=== PATIENT | female | born 1950 | race African-American/Black ===

== ENCOUNTER 2021-03-25 10:41 | Inpatient (IN) | payer MEDICARE ==
[~2021-03-25] VITALS: Ht 162.6 cm; Wt 94.8 kg
[2021-03-25 11:42] LABS: BASOPHILS % 0.5 % (0.0-2.0); EOSINOPHILS % 1.5 % (0.0-5.0); HEMOGLOBIN. 11.6 g/dL (12.0-16.0); LYMPHOCYTES % 8.4 % (20.0-50.0); MEAN CORPUSCULAR HEMOGLOBIN 26.9 pg (28.0-32.0); MEAN CORPUSCULAR VOLUME 83.8 fL (81.0-99.0); MEAN PLATELET VOLUME 9.8 fl (7.4-10.4); MONOCYTES % 6.6 % (2.0-8.0); PLATELET 196 x1000/uL (130-400); RED CELL DISTRIBUTION WIDTH 14.9 % (11.6-14.6)
[2021-03-25 11:45] LABS: CHLORIDE 109 mEq/L (98-107)
[2021-03-25] MEDS ORDERED: LABETALOL 5MG/ML SYR 20 MG/4 ML SYRINGE IV ONE ×3 (11:45→16:30)
[2021-03-25 11:49] LABS: ETHANOL BLOOD < 10 mg/dL
[2021-03-25 11:56] LABS: PROTHROMBIN TIME 10.4 sec (9.6-11.0)
[2021-03-25] MEDS ORDERED: SODIUM CHLORIDE 0.9% 1,000 ML IV ONE (16:45)
[2021-03-25 19:23] LABS: CLARITY URINE CLEAR (CLEAR); COLOR URINE YELLOW (YELLOW); KETONES URINE NEGATIVE (NEGATIVE); LEUKOCYTE ESTERASE URINE TRACE (NEGATIVE); NITRITE URINE NEGATIVE (NEGATIVE); OCCULT BLOOD URINE NEGATIVE (NEGATIVE); PH URINE 5.5 (4.5-8.0); PROTEIN URINE 3+ (NEGATIVE); UROBILINOGEN URINE 0.2 E.U./dL (0.2-1.0)
[2021-03-25 19:40] LABS: *AMPHETAMINES SCREEN URINE NEGATIVE (NEGATIVE); *BARBITURATES SCREEN URINE NEGATIVE (NEGATIVE); *BENZODIAZEPINES SCREEN URINE NEGATIVE (NEGATIVE); *COCAINE SCREEN URINE NEGATIVE (NEGATIVE)
[2021-03-25 19:42] LABS: CANNABINOID URINE SCREEN NEGATIVE (NEGATIVE); METHADONE URINE SCREEN NEGATIVE (NEGATIVE); OPIATES URINE SCREEN PRESUMTIVE POSITIVE (NEGATIVE); PHENCYCLIDINE URINE SCREEN NEGATIVE (NEGATIVE)
[2021-03-26] VITALS (7 sets, daily range): BP systolic 137–234; BP diastolic 61–94
[2021-03-26] MEDS ORDERED: DEXTROSE 50% WATER 50ML SYRINGE IV PRN (01:15)
[2021-03-26] MEDS ORDERED: CLONIDINE 0.1MG TABLET PO PRN (01:15)
[2021-03-26] MEDS ORDERED: AMLODIPINE 5MG TABLET PO SCH (01:30)
[2021-03-26] MEDS: HYDROCODONE/ACETAMINOPHEN 5/325MG TABLET PO PRN ×2 (01:47→14:02)
[2021-03-26] MEDS ORDERED: CLONIDINE 0.2MG TABLET PO NR (04:54)
[2021-03-26] MEDS: PANTOPRAZOLE 40MG DR TABLET PO SCH (05:33)
[2021-03-26] MEDS: BLOOD SUGAR DIAGNOSTIC STRIP TEST SCH ×4 (06:31→20:18)
[2021-03-26] MEDS: INSULIN LISPRO 100 UNITS/ML SUBCUT SCH ×4 (06:32→20:37)
[2021-03-26 07:56] LABS: CHLORIDE 111 mEq/L (98-107)
[2021-03-26] MEDS ORDERED: PNEUMOCOCCAL 23-VAL P-SAC VAC 0.5 ML IM ONE (08:00)
[2021-03-26 08:02] LABS: LDL CHOLESTEROL 53 mg/dL (5-100)
[2021-03-26 08:04] LABS: HDL CHOLESTEROL 65 mg/dL (40-59)
[2021-03-26 08:07] LABS: BASOPHILS % 0.4 % (0.0-2.0); EOSINOPHILS % 0.3 % (0.0-5.0); HEMATOCRIT. 29.7 % (36.0-48.0); HEMOGLOBIN. 9.5 g/dL (12.0-16.0); LYMPHOCYTES % 10.8 % (20.0-50.0); MEAN CORPUSCULAR HEMOGLOBIN 27.2 pg (28.0-32.0); MEAN PLATELET VOLUME 9.9 fl (7.4-10.4); MONOCYTES % 10.1 % (2.0-8.0); NEUTROPHILS % 78.4 % (40.0-76.0); PLATELET 179 x1000/uL (130-400); RED BLOOD CELL COUNT 3.49 mill/uL (4.2-5.4); RED CELL DISTRIBUTION WIDTH 14.9 % (11.6-14.6)
[2021-03-26] MEDS: ASPIRIN 81MG TABLET PO SCH (08:58)
[2021-03-26] MEDS: ENOXAPARIN 30MG/0.3ML SYR SUBCUT SCH (08:59)
[2021-03-26] MEDS ORDERED: INFLUENZA VACCINE 05/PF 0.5 ML SYRINGE IM ONE (10:00)
[2021-03-26] MEDS: AMLODIPINE 10MG TABLET PO SCH (10:01)
[2021-03-26] MEDS ORDERED: INSULIN GLARGINE UD 100 UNITS/ML SYR SUBCUT SCH (14:00)
[2021-03-26] MEDS: ATENOLOL 50 MG TABLET PO SCH (14:03)
[2021-03-26] MEDS: SODIUM CHLORIDE 0.45% 1,000 ML IV SCH (14:03)
[2021-03-26] MEDS ORDERED: HYDRALAZINE HCL 100MG TABLET PO SCH (14:15)
[2021-03-26] MEDS: CLONIDINE 0.2MG TABLET PO PRN (16:57)
[2021-03-26] MEDS ORDERED: NALOXONE HCL 0.4MG/ML VIAL IV PRN (18:00)
[2021-03-26] MEDS: TRAMADOL 50MG TABLET PO PRN (18:07)
[2021-03-26] MEDS: HYDRALAZINE HCL 100MG TABLET PO SCH ×2 (21:25→21:33)
[2021-03-26] MEDS: INSULIN GLARGINE UD 100 UNITS/ML SYR SUBCUT SCH (22:51)
[2021-03-27] VITALS: BP 140/73
[2021-03-27 04:00] VITALS: BP 150/67
[2021-03-27] MEDS: HYDROCODONE/ACETAMINOPHEN 5/325MG TABLET PO PRN ×3 (04:28→14:15)
[2021-03-27] MEDS: HYDRALAZINE HCL 100MG TABLET PO SCH ×3 (05:45→21:02)
[2021-03-27] MEDS: PANTOPRAZOLE 40MG DR TABLET PO SCH (05:45)
[2021-03-27] MEDS: BLOOD SUGAR DIAGNOSTIC STRIP TEST SCH ×4 (06:40→21:41)
[2021-03-27 06:55] LABS: HEMATOCRIT. 31.3 % (36.0-48.0); MEAN CORPUSCULAR HEMOGLOBIN 26.8 pg (28.0-32.0); MEAN CORPUSCULAR VOLUME 83.5 fL (81.0-99.0); MEAN PLATELET VOLUME 10.6 fl (7.4-10.4); PLATELET 201 x1000/uL (130-400); RED BLOOD CELL COUNT 3.74 mill/uL (4.2-5.4); RED CELL DISTRIBUTION WIDTH 14.6 % (11.6-14.6)
[2021-03-27] MEDS: TRAMADOL 50MG TABLET PO PRN (06:57)
[2021-03-27] MEDS: INSULIN LISPRO 100 UNITS/ML SUBCUT SCH ×4 (06:58→21:42)
[2021-03-27 08:00] VITALS: BP 145/65
[2021-03-27] MEDS: ASPIRIN 81MG TABLET PO SCH (09:00)
[2021-03-27] MEDS: ENOXAPARIN 30MG/0.3ML SYR SUBCUT SCH (09:00)
[2021-03-27] MEDS: ATENOLOL 50 MG TABLET PO SCH (09:01)
[2021-03-27] MEDS: AMLODIPINE 10MG TABLET PO SCH (09:01)
[2021-03-27] MEDS: SODIUM CHLORIDE 0.45% 1,000 ML IV SCH (09:02)
[2021-03-27] MEDS: INSULIN GLARGINE UD 100 UNITS/ML SYR SUBCUT SCH ×2 (09:03→22:00)
[2021-03-27] MEDS: CLONIDINE 0.2MG TABLET PO PRN (11:36)
[2021-03-27 12:09] VITALS: BP 188/87
[2021-03-27] MEDS: PIPERACILLIN/TAZOBACTAM 3.375 G in DEXTROSE 5% WATER 50 ML IV SCH ×2 (14:14→21:12)
[2021-03-27] MEDS: MORPHINE SULFATE 2 MG/ML CPJ (NOT FOR IM USE) IV PRN (15:46)
[2021-03-27 16:00] VITALS: BP 140/72
[2021-03-27 18:38] LABS: PLATELET ESTIMATE NORMAL
[2021-03-27 20:00] VITALS: BP 122/67
[2021-03-28] VITALS: BP 144/62
[2021-03-28 04:00] VITALS: BP 155/75
[2021-03-28] MEDS: MORPHINE SULFATE 2 MG/ML CPJ (NOT FOR IM USE) IV PRN ×4 (04:43→20:20)
[2021-03-28] MEDS: SODIUM CHLORIDE 0.45% 1,000 ML IV SCH (04:45)
[2021-03-28] MEDS: HYDRALAZINE HCL 100MG TABLET PO SCH ×3 (05:16→22:03)
[2021-03-28] MEDS: BLOOD SUGAR DIAGNOSTIC STRIP TEST SCH ×4 (06:40→21:00)
[2021-03-28] MEDS: INSULIN LISPRO 100 UNITS/ML SUBCUT SCH ×4 (07:10→22:04)
[2021-03-28 07:57] LABS: BASOPHILS % 0.5 % (0.0-2.0); EOSINOPHILS % 0.1 % (0.0-5.0); HEMATOCRIT. 36.2 % (36.0-48.0); HEMOGLOBIN. 11.4 g/dL (12.0-16.0); MEAN CORPUSCULAR HEMOGLOBIN 26.7 pg (28.0-32.0); MEAN CORPUSCULAR VOLUME 84.5 fL (81.0-99.0); MEAN PLATELET VOLUME 10.6 fl (7.4-10.4); MONOCYTES % 14.3 % (2.0-8.0); NEUTROPHILS % 77.1 % (40.0-76.0); PLATELET 241 x1000/uL (130-400); RED BLOOD CELL COUNT 4.28 mill/uL (4.2-5.4); RED CELL DISTRIBUTION WIDTH 14.9 % (11.6-14.6)
[2021-03-28 08:00] VITALS: BP 157/67
[2021-03-28] MEDS: ALLOPURINOL 100 MG TABLET PO SCH (09:34)
[2021-03-28] MEDS: PIPERACILLIN/TAZOBACTAM 3.375 G in DEXTROSE 5% WATER 50 ML IV SCH ×2 (09:34→21:48)
[2021-03-28] MEDS: ATENOLOL 50 MG TABLET PO SCH (09:35)
[2021-03-28] MEDS: FAMOTIDINE 20MG TABLET PO SCH (09:35)
[2021-03-28] MEDS: AMLODIPINE 10MG TABLET PO SCH (09:39)
[2021-03-28] MEDS: INSULIN GLARGINE UD 100 UNITS/ML SYR SUBCUT SCH ×2 (09:41→22:05)
[2021-03-28 12:00] VITALS: BP 138/78
[2021-03-28] MEDS ORDERED: DEXAMETHASONE 4MG/ML 1ML VIAL IV NR (13:00)
[2021-03-28] MEDS: ENOXAPARIN 80MG/0.8ML SYR SUBCUT SCH (14:35)
[2021-03-28 16:00] VITALS: BP 149/69
[2021-03-28 20:00] VITALS: BP 122/63
[2021-03-29] VITALS: BP 117/61
[2021-03-29] MEDS: SODIUM CHLORIDE 0.45% 1,000 ML IV SCH (02:17)
[2021-03-29 04:00] VITALS: BP 151/83
[2021-03-29] MEDS: HYDRALAZINE HCL 100MG TABLET PO SCH ×3 (05:10→22:04)
[2021-03-29] MEDS: HYDROCODONE/ACETAMINOPHEN 5/325MG TABLET PO PRN ×2 (05:10→12:51)
[2021-03-29] MEDS: BLOOD SUGAR DIAGNOSTIC STRIP TEST SCH ×4 (06:40→22:04)
[2021-03-29] MEDS: INSULIN LISPRO 100 UNITS/ML SUBCUT SCH ×4 (06:46→22:11)
[2021-03-29 07:16] LABS: HEMATOCRIT. 33.7 % (36.0-48.0); PLATELET 277 x1000/uL (130-400); RED BLOOD CELL COUNT 4.06 mill/uL (4.2-5.4); RED CELL DISTRIBUTION WIDTH 15.1 % (11.6-14.6)
[2021-03-29 08:00] VITALS: BP 142/66
[2021-03-29] MEDS: ALLOPURINOL 100 MG TABLET PO SCH (10:06)
[2021-03-29] MEDS: ATENOLOL 50 MG TABLET PO SCH (10:06)
[2021-03-29] MEDS: FAMOTIDINE 20MG TABLET PO SCH (10:07)
[2021-03-29] MEDS: PREDNISONE 20MG TABLET PO SCH (10:07)
[2021-03-29] MEDS: AMLODIPINE 10MG TABLET PO SCH (10:07)
[2021-03-29] MEDS: MORPHINE SULFATE 2 MG/ML CPJ (NOT FOR IM USE) IV PRN ×2 (10:08→17:19)
[2021-03-29] MEDS: PIPERACILLIN/TAZOBACTAM 3.375 G in DEXTROSE 5% WATER 50 ML IV SCH ×2 (10:08→22:04)
[2021-03-29] MEDS: INSULIN GLARGINE UD 100 UNITS/ML SYR SUBCUT SCH ×2 (10:08→22:12)
[2021-03-29 12:00] VITALS: BP 167/75
[2021-03-29 12:17] LABS: BG CARBOXYHEMOGLOBIN 0.3 % (0.5-1.5); BG DEOXYHEMOGLOBIN 3.1 % (0.0-5.0); BG HCO3 ACT 19.1 mmol/L (22.0-26.0); BG METHEMOGLOBIN 0.3 % (0.0-1.5); BG OXYGEN SATURATION 96.9 % (92.0-98.5); BG OXYHEMOGLOBIN 96.3 % (94.0-97.0); BG PCO2 32.5 mmHg (35.0-45.0); BG PH 7.387 (7.350-7.450); BG PO2 86.1 mmHg (75.0-100.0); BG SAMPLE SITE LEFT RADIAL; BG VENT MODE ROOM AIR
[2021-03-29] MEDS: SODIUM CHLORIDE 0.9% 1,000 ML IV SCH ×2 (12:51→22:17)
[2021-03-29] MEDS: CLONIDINE 0.2MG TABLET PO PRN (12:52)
[2021-03-29 13:27] LABS: PLATELET ESTIMATE NORMAL
[2021-03-29 16:00] VITALS: BP 128/62
[2021-03-29 20:00] VITALS: BP 123/62
[2021-03-30] VITALS: BP 132/56
[2021-03-30 04:00] VITALS: BP 159/69
[2021-03-30] MEDS: MORPHINE SULFATE 2 MG/ML CPJ (NOT FOR IM USE) IV PRN ×2 (04:24→16:20)
[2021-03-30] MEDS: HYDRALAZINE HCL 100MG TABLET PO SCH ×3 (05:29→20:28)
[2021-03-30] MEDS: SODIUM CHLORIDE 0.9% 1,000 ML IV SCH ×2 (05:41→17:36)
[2021-03-30] MEDS: INSULIN LISPRO 100 UNITS/ML SUBCUT SCH ×4 (06:12→20:38)
[2021-03-30] MEDS: BLOOD SUGAR DIAGNOSTIC STRIP TEST SCH ×4 (06:12→20:29)
[2021-03-30 06:34] LABS: HEMOGLOBIN. 10.1 g/dL (12.0-16.0); MEAN CORPUSCULAR HEMOGLOBIN 27.1 pg (28.0-32.0); MEAN CORPUSCULAR VOLUME 83.5 fL (81.0-99.0); MEAN PLATELET VOLUME 9.1 fl (7.4-10.4); PLATELET 337 x1000/uL (130-400); RED BLOOD CELL COUNT 3.72 mill/uL (4.2-5.4)
[2021-03-30 07:15] LABS: PHOSPHORUS 4.5 mg/dL (2.5-4.9)
[2021-03-30 08:00] VITALS: BP 164/75
[2021-03-30] MEDS: PIPERACILLIN/TAZOBACTAM 3.375 G in DEXTROSE 5% WATER 50 ML IV SCH ×2 (08:48→20:36)
[2021-03-30] MEDS: FAMOTIDINE 20MG TABLET PO SCH (09:00)
[2021-03-30] MEDS: AMLODIPINE 10MG TABLET PO SCH (09:00)
[2021-03-30] MEDS: ATENOLOL 50 MG TABLET PO SCH (09:00)
[2021-03-30] MEDS: ALLOPURINOL 100 MG TABLET PO SCH (09:00)
[2021-03-30] MEDS: PREDNISONE 20MG TABLET PO SCH (09:00)
[2021-03-30] MEDS: INSULIN GLARGINE UD 100 UNITS/ML SYR SUBCUT SCH ×2 (10:00→20:38)
[2021-03-30] MEDS ORDERED: LIDOCAINE HCL 1% 20ML VIAL (Pyxis) INJ ONE (10:33)
[2021-03-30] MEDS ORDERED: SODIUM BICARBONATE 4% (2.4MEQ) 5ML VIAL IV ONE (10:33)
[2021-03-30] MEDS: HYDROCODONE/ACETAMINOPHEN 5/325MG TABLET PO PRN ×2 (11:58→20:29)
[2021-03-30 12:00] VITALS: BP 168/80
[2021-03-30 16:00] VITALS: BP 202/85
[2021-03-30] MEDS ORDERED: VANCOMYCIN 1,750 MG in DEXT 5% WATER 500 ML IV NR (17:30)
[2021-03-30 17:33] LABS: PLATELET ESTIMATE NORMAL
[2021-03-30 20:00] VITALS: BP 168/79
[2021-03-31] VITALS (7 sets, daily range): BP systolic 132–183; BP diastolic 63–84
[2021-03-31] MEDS: MORPHINE SULFATE 2 MG/ML CPJ (NOT FOR IM USE) IV PRN ×2 (00:10→09:24)
[2021-03-31] MEDS: CLONIDINE 0.2MG TABLET PO PRN ×2 (00:10→20:02)
[2021-03-31] MEDS: SODIUM CHLORIDE 0.9% 1,000 ML IV SCH ×3 (03:53→20:56)
[2021-03-31] MEDS: HYDRALAZINE HCL 100MG TABLET PO SCH ×3 (05:19→20:54)
[2021-03-31] MEDS: INSULIN LISPRO 100 UNITS/ML SUBCUT SCH ×4 (06:23→20:55)
[2021-03-31] MEDS: BLOOD SUGAR DIAGNOSTIC STRIP TEST SCH ×4 (06:23→20:54)
[2021-03-31] MEDS: PIPERACILLIN/TAZOBACTAM 3.375 G in DEXTROSE 5% WATER 50 ML IV SCH ×2 (08:22→20:54)
[2021-03-31] MEDS: FAMOTIDINE 20MG TABLET PO SCH (08:22)
[2021-03-31] MEDS: ATENOLOL 50 MG TABLET PO SCH (08:25)
[2021-03-31] MEDS: ALLOPURINOL 100 MG TABLET PO SCH (08:27)
[2021-03-31] MEDS: AMLODIPINE 10MG TABLET PO SCH (08:27)
[2021-03-31] MEDS: INSULIN GLARGINE UD 100 UNITS/ML SYR SUBCUT SCH ×2 (09:20→20:55)
[2021-03-31 10:40] LABS: BASOPHILS % 0.2 % (0.0-2.0); EOSINOPHILS % 0.8 % (0.0-5.0); HEMATOCRIT. 33.9 % (36.0-48.0); HEMOGLOBIN. 10.7 g/dL (12.0-16.0); MEAN CORPUSCULAR HEMOGLOBIN 27.2 pg (28.0-32.0); MEAN CORPUSCULAR VOLUME 85.8 fL (81.0-99.0); MEAN PLATELET VOLUME 8.7 fl (7.4-10.4); MONOCYTES % 11.7 % (2.0-8.0); NEUTROPHILS % 77.3 % (40.0-76.0); PLATELET 330 x1000/uL (130-400); RED BLOOD CELL COUNT 3.94 mill/uL (4.2-5.4); RED CELL DISTRIBUTION WIDTH 15.3 % (11.6-14.6)
[2021-03-31 11:10] LABS: PHOSPHORUS 3.6 mg/dL (2.5-4.9)
[2021-03-31] MEDS: HYDROCODONE/ACETAMINOPHEN 5/325MG TABLET PO PRN ×2 (14:56→20:01)
[2021-03-31] MEDS: ENOXAPARIN 80MG/0.8ML SYR SUBCUT SCH ×2 (15:09→16:13)
[2021-03-31] MEDS: CITRIC ACID/SODIUM CITRATE SOLN 30ML UDC PO SCH (16:58)
[2021-03-31] MEDS ORDERED: VANCOMYCIN 1 G PREMIX 200 ML IV NR (18:00)
[2021-03-31] MEDS: MEMANTINE HCL 5MG TABLET PO SCH (20:02)
[2021-04-01] VITALS (7 sets, daily range): BP systolic 132–199; BP diastolic 52–86
[2021-04-01] MEDS: MORPHINE SULFATE 2 MG/ML CPJ (NOT FOR IM USE) IV PRN ×2 (04:36→08:42)
[2021-04-01] MEDS: BLOOD SUGAR DIAGNOSTIC STRIP TEST SCH ×4 (06:40→21:41)
[2021-04-01] MEDS: HYDRALAZINE HCL 100MG TABLET PO SCH ×2 (06:40→14:41)
[2021-04-01] MEDS: INSULIN LISPRO 100 UNITS/ML SUBCUT SCH ×4 (07:10→21:41)
[2021-04-01 07:15] LABS: BASOPHILS % 0.7 % (0.0-2.0); EOSINOPHILS % 1.7 % (0.0-5.0); HEMATOCRIT. 30.4 % (36.0-48.0); HEMOGLOBIN. 9.7 g/dL (12.0-16.0); LYMPHOCYTES % 10.8 % (20.0-50.0); MEAN CORPUSCULAR HEMOGLOBIN 26.8 pg (28.0-32.0); MEAN CORPUSCULAR VOLUME 84.1 fL (81.0-99.0); MEAN PLATELET VOLUME 8.7 fl (7.4-10.4); MONOCYTES % 10.9 % (2.0-8.0); NEUTROPHILS % 75.9 % (40.0-76.0); PLATELET 329 x1000/uL (130-400); RED BLOOD CELL COUNT 3.61 mill/uL (4.2-5.4); RED CELL DISTRIBUTION WIDTH 14.5 % (11.6-14.6)
[2021-04-01 07:53] LABS: PHOSPHORUS 3.6 mg/dL (2.5-4.9)
[2021-04-01] MEDS: ALLOPURINOL 100 MG TABLET PO SCH ×2 (08:32→10:00)
[2021-04-01] MEDS: FAMOTIDINE 20MG TABLET PO SCH ×3 (08:33→10:02)
[2021-04-01] MEDS: PIPERACILLIN/TAZOBACTAM 3.375 G in DEXTROSE 5% WATER 50 ML IV SCH (08:41)
[2021-04-01] MEDS: ATENOLOL 50 MG TABLET PO SCH (10:00)
[2021-04-01] MEDS: CITRIC ACID/SODIUM CITRATE SOLN 30ML UDC PO SCH ×3 (10:00→16:54)
[2021-04-01] MEDS: INSULIN GLARGINE UD 100 UNITS/ML SYR SUBCUT SCH (10:00)
[2021-04-01] MEDS: AMLODIPINE 10MG TABLET PO SCH (10:01)
[2021-04-01] MEDS: MEMANTINE HCL 5MG TABLET PO SCH ×2 (10:01→21:40)
[2021-04-01] MEDS: SODIUM CHLORIDE 0.9% 1,000 ML IV SCH (10:03)
[2021-04-01] MEDS ORDERED: ATENOLOL 50 MG TABLET PO NR (11:30)
[2021-04-01] MEDS: HYDROCODONE/ACETAMINOPHEN 5/325MG TABLET PO PRN (16:53)
[2021-04-01] MEDS: NIFEDIPINE XL 30MG TAB PO SCH ×2 (17:32→21:40)
[2021-04-01] MEDS ORDERED: VANCOMYCIN 750 MG PREMIX 150 ML IV NR (18:00)
[2021-04-01] MEDS: CLONIDINE 0.2MG TABLET PO PRN (19:49)
[2021-04-02] MEDS ORDERED: ATENOLOL 100 MG TABLET PO SCH (09:00)
== END 2021-04-01 23:00 | DRG 73 ==
LOC: ER 10:41 → MICUSO 18:15 → 7EST 03-26 00:12
PROVIDERS: ADMIT Internal Medicine; ATTEND Internal Medicine
PROC: 0S9D3ZZ Drainage of Left Knee Joint, Percutaneous Approach (ICD-10-PCS; principal; 2021-03-30)
DX: G90.9 Disorder of the autonomic nervous system, unspecified (principal); G93.41 Metabolic encephalopathy; E44.1 Mild protein-calorie malnutrition; R78.81 Bacteremia; I82.411 Acute embolism and thrombosis of right femoral vein; N13.2 Hydronephrosis with renal and ureteral calculous obstruction; N17.9 Acute kidney failure, unspecified; I16.0 Hypertensive urgency; M25.462 Effusion, left knee; E11.65 Type 2 diabetes mellitus with hyperglycemia; E87.8 Other disorders of electrolyte and fluid balance, not elsewhere classified; D64.9 Anemia, unspecified; F17.210 Nicotine dependence, cigarettes, uncomplicated; R29.810 Facial weakness; N18.9 Chronic kidney disease, unspecified; B95.5 Unspecified streptococcus as the cause of diseases classified elsewhere; M10.9 Gout, unspecified; Z20.822 Contact with and (suspected) exposure to COVID-19; D32.9 Benign neoplasm of meninges, unspecified; Z86.73 Personal history of transient ischemic attack (TIA), and cerebral infarction without residual deficits; I12.9 Hypertensive chronic kidney disease with stage 1 through stage 4 chronic kidney disease, or unspecified chronic kidney disease; Z91.81 History of falling; M17.12 Unilateral primary osteoarthritis, left knee; N28.1 Cyst of kidney, acquired; S83.512A Sprain of anterior cruciate ligament of left knee, initial encounter
CPT/HCPCS: 20611; 36415; 36600; 70551; 73560; 73721; 74176; 76770; 80048; 80053; 80061; 80202; 80305; 80320; 81003; 82040; 82140; 82247; 82375; 82805; 82962; 83036; 83615; 83735; 83880; 84075; 84100; 84145; 84155; 84439; 84443; 84450; 84460; 84478; 84484; 84550; 85025; 85651; 86141; 86160; 87077; 87186; 87426; 89060; 90686; 90732; 93970; 95816; 97162; 97530; 99285; J1100; J1650; J1815; J2270; J2543; J3370; J3490; J7030; J7060; J7512; G0480

== ENCOUNTER 2021-04-20 08:56 | Inpatient (IN) | payer MEDICARE ==
[~2021-04-20] VITALS: Ht 167.6 cm; Wt 93.0 kg
[2021-04-20] MEDS ORDERED: HUMALOG (09:00)
[2021-04-20] MEDS ORDERED: LANTUS (09:00)
[2021-04-20] MEDS ORDERED: SODIUM CHLORIDE 0.9% 1000ML BAG (SEPSIS BOLUS) IV ONE (09:15)
[2021-04-20 09:42] LABS: HEMATOCRIT. 29.3 % (36.0-48.0); HEMOGLOBIN. 9.2 g/dL (12.0-16.0); MEAN CORPUSCULAR HEMOGLOBIN 26.3 pg (28.0-32.0); MEAN CORPUSCULAR VOLUME 84.3 fL (81.0-99.0); MEAN PLATELET VOLUME 8.2 fl (7.4-10.4); PLATELET 390 x1000/uL (130-400); RED BLOOD CELL COUNT 3.48 mill/uL (4.2-5.4); RED CELL DISTRIBUTION WIDTH 15.6 % (11.6-14.6)
[2021-04-20 09:49] LABS: CHLORIDE 111 mEq/L (98-107)
[2021-04-20 09:53] LABS: ETHANOL BLOOD < 10 mg/dL
[2021-04-20 09:57] LABS: BG BASE EXCESS -4.6 mmol/L (-2.0-2.0); BG CARBOXYHEMOGLOBIN 1.2 % (0.5-1.5); BG DEOXYHEMOGLOBIN 3.7 % (0.0-5.0); BG FRACTION INSPIRED OXYGEN 21; BG METHEMOGLOBIN 0.5 % (0.0-1.5); BG OXYGEN SATURATION 96.2 % (92.0-98.5); BG OXYHEMOGLOBIN 94.6 % (94.0-97.0); BG PCO2 35.1 mmHg (35.0-45.0); BG PH 7.374 (7.350-7.450); BG PO2 83.4 mmHg (75.0-100.0); BG SAMPLE SITE RIGHT RADIAL; BG TOTAL HEMOGLOBIN 9.4 g/dL (12.0-18.0); BG VENT MODE ROOM AIR
[2021-04-20 09:57] LABS: CREATINE KINASE 44 IU/L (26-192)
[2021-04-20 09:58] LABS: BETA HYDROXYBUTYRATE 0.1 mMol/L (0.0-0.3)
[2021-04-20 10:05] LABS: INR 1.1; PROTHROMBIN TIME 11.4 sec (9.6-11.0)
[2021-04-20 10:12] LABS: PLATELET ESTIMATE NORMAL
[2021-04-20] MEDS ORDERED: FUROSEMIDE 20MG/2ML VIAL IVP ONE (11:00)
[2021-04-20] MEDS ORDERED: CEFTRIAXONE 1 G PREMIX 50 ML IV ONE (11:00)
[2021-04-20] MEDS ORDERED: INSULIN REGULAR (HUMULIN R) 300UNITS/3ML VIAL IV ONE (11:00)
[2021-04-20 11:17] LABS: CLARITY URINE CLEAR (CLEAR); COLOR URINE YELLOW (YELLOW); KETONES URINE NEGATIVE (NEGATIVE); LEUKOCYTE ESTERASE URINE NEGATIVE (NEGATIVE); NITRITE URINE POSITIVE (NEGATIVE); OCCULT BLOOD URINE NEGATIVE (NEGATIVE); PH URINE 5.5 (4.5-8.0); PROTEIN URINE 3+ (NEGATIVE); SPECIFIC GRAVITY URINE 1.017 (1.005-1.030); UROBILINOGEN URINE 0.2 E.U./dL (0.2-1.0)
[2021-04-20 11:31] LABS: *AMPHETAMINES SCREEN URINE NEGATIVE (NEGATIVE); *BARBITURATES SCREEN URINE NEGATIVE (NEGATIVE); *BENZODIAZEPINES SCREEN URINE NEGATIVE (NEGATIVE); *COCAINE SCREEN URINE NEGATIVE (NEGATIVE)
[2021-04-20 11:32] LABS: CANNABINOID URINE SCREEN NEGATIVE (NEGATIVE); METHADONE URINE SCREEN NEGATIVE (NEGATIVE); OPIATES URINE SCREEN PRESUMTIVE POSITIVE (NEGATIVE); PHENCYCLIDINE URINE SCREEN NEGATIVE (NEGATIVE)
[2021-04-20] MEDS ORDERED: NALOXONE HCL 1 MG/ML 2ML VIAL IV ONE (11:45)
[2021-04-20] MEDS ORDERED: ACETAMINOPHEN 650MG SUPP PR ONE (11:45)
[2021-04-20] MEDS ORDERED: ONDANSETRON HCL 4MG/2ML INJ IV PRN (15:15)
[2021-04-20] MEDS ORDERED: IPRATROPIUM/ALBUTEROL 0.5-3(2.5)MG/3ML NEB HHN PRN (15:15)
[2021-04-20] MEDS ORDERED: PIPERACILLIN/TAZOBACTAM 3.375 G in DEXTROSE 5% WATER 50 ML IV SCH ×2 (15:15→18:00)
[2021-04-20 16:00] VITALS: BP 171/85
[2021-04-20] MEDS ORDERED: PIPERACILLIN/TAZ 3.375G PREMIX 50 ML IV NR (16:00)
[2021-04-20] MEDS: HYDRALAZINE 20MG/ML VIAL IV PRN (16:21)
[2021-04-20 17:00] VITALS: BP 176/81
[2021-04-20] MEDS: CLONIDINE 0.1MG TABLET PO PRN (17:19)
[2021-04-20] MEDS ORDERED: DEXTROSE 50% WATER 50ML SYRINGE IV PRN (17:45)
[2021-04-20] MEDS ORDERED: PIPERACILLIN/TAZOBACTAM 3.375 G in DEXTROSE 5% WATER 50 ML IV NR (17:45)
[2021-04-20] MEDS: INSULIN LISPRO 100 UNITS/ML SUBCUT SCH ×2 (17:49→21:00)
[2021-04-20 18:00] VITALS: BP 148/87
[2021-04-20] MEDS ORDERED: ENOXAPARIN 30MG/0.3ML SYR SUBCUT SCH (18:00)
[2021-04-20 20:00] VITALS: BP 167/99
[2021-04-20] MEDS: BLOOD SUGAR DIAGNOSTIC STRIP TEST SCH (21:00)
[2021-04-20 22:00] VITALS: BP 131/73
[2021-04-21] VITALS (12 sets, daily range): BP systolic 120–166; BP diastolic 68–81
[2021-04-21] MEDS: ACETAMINOPHEN 325MG TABLET PO PRN (00:21)
[2021-04-21 01:32] LABS: CREATINE KINASE 22 IU/L (26-192)
[2021-04-21 01:33] LABS: CREATINE KINASE MB FRACTION < 1.0 ng/mL (0.5-3.6)
[2021-04-21 06:36] LABS: BASOPHILS % 0.4 % (0.0-2.0); HEMATOCRIT. 23.2 % (36.0-48.0); HEMOGLOBIN. 7.3 g/dL (12.0-16.0); LYMPHOCYTES % 7.6 % (20.0-50.0); MEAN CORPUSCULAR HEMOGLOBIN 26.2 pg (28.0-32.0); MEAN CORPUSCULAR VOLUME 83.6 fL (81.0-99.0); MEAN PLATELET VOLUME 9.6 fl (7.4-10.4); MONOCYTES % 11.6 % (2.0-8.0); NEUTROPHILS % 80.4 % (40.0-76.0); PLATELET 315 x1000/uL (130-400); RED BLOOD CELL COUNT 2.78 mill/uL (4.2-5.4); RED CELL DISTRIBUTION WIDTH 16.2 % (11.6-14.6)
[2021-04-21 06:40] LABS: CHLORIDE 114 mEq/L (98-107)
[2021-04-21 06:57] LABS: LDL CHOLESTEROL 33 mg/dL (5-100)
[2021-04-21 06:58] LABS: CREATINE KINASE 37 IU/L (26-192); HDL CHOLESTEROL 64 mg/dL (40-59)
[2021-04-21 06:59] LABS: CREATINE KINASE MB FRACTION < 1.0 ng/mL (0.5-3.6); T4 FREE 1.06 ng/dL (0.76-1.46)
[2021-04-21] MEDS: BLOOD SUGAR DIAGNOSTIC STRIP TEST SCH ×4 (07:30→21:00)
[2021-04-21] MEDS: PIPERACILLIN/TAZOBACTAM 3.375 G in DEXTROSE 5% WATER 50 ML IV SCH ×2 (09:35→21:16)
[2021-04-21] MEDS: INSULIN LISPRO 100 UNITS/ML SUBCUT SCH ×4 (09:36→21:00)
[2021-04-21] MEDS ORDERED: SODIUM POLYSTYRENE SULFONATE 15 G/60 ML BOT PO NR (13:00)
[2021-04-21] MEDS ORDERED: BISACODYL 10MG SUPP PR PRN (16:30)
[2021-04-21] MEDS ORDERED: IPRATROPIUM/ALBUTEROL 0.5-3(2.5)MG/3ML NEB HHN PRN (16:30)
[2021-04-21 17:22] LABS: HEMOGLOBIN 7.1 g/dL (12.0-16.0)
[2021-04-21] MEDS: HYDRALAZINE 20MG/ML VIAL IV PRN (18:46)
[2021-04-21] MEDS: FAMOTIDINE 20MG TABLET PO SCH (21:17)
[2021-04-21] MEDS: HYDROCODONE/ACETAMINOPHEN 5/325MG TABLET PO PRN (21:25)
[2021-04-22] VITALS (21 sets, daily range): BP systolic 143–185; BP diastolic 58–93
[2021-04-22] MEDS: ACETAMINOPHEN 325MG TABLET PO PRN ×2 (02:43→20:39)
[2021-04-22] MEDS: HYDRALAZINE 20MG/ML VIAL IV PRN ×3 (06:28→19:18)
[2021-04-22] MEDS: HYDROCODONE/ACETAMINOPHEN 5/325MG TABLET PO PRN ×2 (06:36→12:24)
[2021-04-22 06:56] LABS: CHLORIDE 115 mEq/L (98-107)
[2021-04-22 07:02] LABS: PHOSPHORUS 3.8 mg/dL (2.5-4.9)
[2021-04-22 07:04] LABS: BASOPHILS % 0.9 % (0.0-2.0); HEMOGLOBIN. 7.9 g/dL (12.0-16.0); LYMPHOCYTES % 12.7 % (20.0-50.0); MEAN CORPUSCULAR HEMOGLOBIN 27.1 pg (28.0-32.0); MEAN CORPUSCULAR VOLUME 82.2 fL (81.0-99.0); MEAN PLATELET VOLUME 9.2 fl (7.4-10.4); MONOCYTES % 14.2 % (2.0-8.0); NEUTROPHILS % 71.2 % (40.0-76.0); PLATELET 317 x1000/uL (130-400); RED BLOOD CELL COUNT 2.93 mill/uL (4.2-5.4); RED CELL DISTRIBUTION WIDTH 15.5 % (11.6-14.6)
[2021-04-22] MEDS: INSULIN LISPRO 100 UNITS/ML SUBCUT SCH ×4 (08:00→21:00)
[2021-04-22] MEDS: BLOOD SUGAR DIAGNOSTIC STRIP TEST SCH ×3 (08:16→21:00)
[2021-04-22] MEDS: PIPERACILLIN/TAZOBACTAM 3.375 G in DEXTROSE 5% WATER 50 ML IV SCH (08:18)
[2021-04-22] MEDS ORDERED: LEVOFLOXACIN 500MG PREMIX 100 ML IV SCH (17:00)
[2021-04-22] MEDS: AMLODIPINE 5MG TABLET PO SCH (17:24)
[2021-04-22] MEDS ORDERED: VANCOMYCIN 1500MG in DEXTROSE 5% WATER 250ML IV SCH (18:30)
[2021-04-22] MEDS: FAMOTIDINE 20MG TABLET PO SCH (20:39)
[2021-04-22 23:54] LABS: HEMATOCRIT 27.7 % (36.0-48.0); HEMOGLOBIN 8.9 g/dL (12.0-16.0)
[2021-04-23] VITALS (12 sets, daily range): BP systolic 141–175; BP diastolic 63–100
[2021-04-23] MEDS: CLONIDINE 0.1MG TABLET PO PRN ×3 (00:58→17:39)
[2021-04-23] MEDS: HYDRALAZINE 20MG/ML VIAL IV PRN ×2 (06:35→13:09)
[2021-04-23 07:14] LABS: HEMATOCRIT. 30.3 % (36.0-48.0); HEMOGLOBIN. 9.8 g/dL (12.0-16.0); MEAN CORPUSCULAR HEMOGLOBIN 27.1 pg (28.0-32.0); MEAN CORPUSCULAR VOLUME 84.1 fL (81.0-99.0); MEAN PLATELET VOLUME 9.5 fl (7.4-10.4); PLATELET 332 x1000/uL (130-400); RED CELL DISTRIBUTION WIDTH 15.1 % (11.6-14.6)
[2021-04-23] MEDS: BLOOD SUGAR DIAGNOSTIC STRIP TEST SCH ×4 (07:30→21:00)
[2021-04-23 07:38] LABS: PHOSPHORUS 3.4 mg/dL (2.5-4.9)
[2021-04-23] MEDS: HYDROCODONE/ACETAMINOPHEN 5/325MG TABLET PO PRN ×3 (08:58→17:40)
[2021-04-23] MEDS: AMLODIPINE 5MG TABLET PO SCH (08:58)
[2021-04-23] MEDS: INSULIN LISPRO 100 UNITS/ML SUBCUT SCH ×4 (09:04→21:37)
[2021-04-23] MEDS ORDERED: VANCOMYCIN 500 MG PREMIX 100 ML IV SCH (11:00)
[2021-04-23] MEDS: METRONIDAZOLE 500MG TABLET PO SCH ×2 (14:00→21:09)
[2021-04-23] MEDS: CEFEPIME 2,000 MG in DEXT 5% WATER 100 ML IV SCH (14:00)
[2021-04-23] MEDS: HYDRALAZINE HCL 50MG TABLET PO SCH ×2 (14:00→21:09)
[2021-04-23 14:22] LABS: PLATELET ESTIMATE NORMAL
[2021-04-23] MEDS ORDERED: LEVOFLOXACIN 250MG PREMIX 50 ML IV SCH (17:00)
[2021-04-23] MEDS: FAMOTIDINE 20MG TABLET PO SCH (21:35)
[2021-04-23] MEDS: MORPHINE SULFATE 2 MG/ML CPJ (NOT FOR IM USE) IV PRN (21:36)
[2021-04-24] VITALS (12 sets, daily range): BP systolic 142–173; BP diastolic 71–100
[2021-04-24] MEDS: METRONIDAZOLE 500MG TABLET PO SCH ×3 (05:40→22:00)
[2021-04-24] MEDS: HYDRALAZINE HCL 50MG TABLET PO SCH ×3 (05:41→21:06)
[2021-04-24 06:29] LABS: HEMATOCRIT. 27.6 % (36.0-48.0); HEMOGLOBIN. 9.1 g/dL (12.0-16.0); MEAN CORPUSCULAR HEMOGLOBIN 27.5 pg (28.0-32.0); MEAN CORPUSCULAR VOLUME 83.4 fL (81.0-99.0); MEAN PLATELET VOLUME 8.8 fl (7.4-10.4); PLATELET 341 x1000/uL (130-400); RED BLOOD CELL COUNT 3.31 mill/uL (4.2-5.4); RED CELL DISTRIBUTION WIDTH 15.6 % (11.6-14.6)
[2021-04-24 06:57] LABS: PHOSPHORUS 2.9 mg/dL (2.5-4.9)
[2021-04-24] MEDS: BLOOD SUGAR DIAGNOSTIC STRIP TEST SCH ×4 (07:57→21:00)
[2021-04-24] MEDS: INSULIN LISPRO 100 UNITS/ML SUBCUT SCH ×4 (08:00→21:05)
[2021-04-24] MEDS: AMLODIPINE 5MG TABLET PO SCH (08:09)
[2021-04-24] MEDS: CEFEPIME 2,000 MG in DEXT 5% WATER 100 ML IV SCH (08:09)
[2021-04-24] MEDS: MORPHINE SULFATE 2 MG/ML CPJ (NOT FOR IM USE) IV PRN ×2 (08:28→21:04)
[2021-04-24] MEDS: LORAZEPAM 2MG/ML CPJ IV PRN (10:19)
[2021-04-24 13:17] LABS: PLATELET ESTIMATE NORMAL
[2021-04-24] MEDS: ACETAMINOPHEN 325MG TABLET PO PRN (14:00)
[2021-04-24] MEDS ORDERED: VANCOMYCIN 1 G PREMIX 200 ML IV NR (18:00)
[2021-04-24] MEDS: FAMOTIDINE 20MG TABLET PO SCH (21:05)
[2021-04-24] MEDS ORDERED: NALOXONE HCL 0.4MG/ML VIAL IV PRN (22:45)
[2021-04-25] VITALS (12 sets, daily range): BP systolic 163–228; BP diastolic 85–131
[2021-04-25] MEDS: HYDRALAZINE 20MG/ML VIAL IV PRN ×3 (01:56→20:59)
[2021-04-25] MEDS: ACETAMINOPHEN 325MG TABLET PO PRN ×2 (03:37→21:29)
[2021-04-25] MEDS: MORPHINE SULFATE 2 MG/ML CPJ (NOT FOR IM USE) IV PRN ×4 (04:27→21:26)
[2021-04-25] MEDS: METRONIDAZOLE 500MG TABLET PO SCH ×3 (05:49→21:24)
[2021-04-25] MEDS: HYDRALAZINE HCL 50MG TABLET PO SCH ×3 (05:49→21:25)
[2021-04-25 06:43] LABS: BASOPHILS % 0.4 % (0.0-2.0); EOSINOPHILS % 3.1 % (0.0-5.0); HEMATOCRIT. 29.3 % (36.0-48.0); HEMOGLOBIN. 9.4 g/dL (12.0-16.0); LYMPHOCYTES % 10.9 % (20.0-50.0); MEAN CORPUSCULAR VOLUME 84.2 fL (81.0-99.0); MONOCYTES % 14.3 % (2.0-8.0); NEUTROPHILS % 71.3 % (40.0-76.0); PLATELET 353 x1000/uL (130-400); RED BLOOD CELL COUNT 3.48 mill/uL (4.2-5.4); RED CELL DISTRIBUTION WIDTH 15.9 % (11.6-14.6)
[2021-04-25] MEDS: BLOOD SUGAR DIAGNOSTIC STRIP TEST SCH ×4 (07:30→21:00)
[2021-04-25 07:54] LABS: PHOSPHORUS 2.9 mg/dL (2.5-4.9)
[2021-04-25] MEDS: INSULIN LISPRO 100 UNITS/ML SUBCUT SCH ×4 (08:00→21:25)
[2021-04-25] MEDS: HYDROCODONE/ACETAMINOPHEN 5/325MG TABLET PO PRN ×3 (08:01→09:34)
[2021-04-25] MEDS: CEFEPIME 2,000 MG in DEXT 5% WATER 100 ML IV SCH (09:31)
[2021-04-25] MEDS: AMLODIPINE 5MG TABLET PO SCH (09:32)
[2021-04-25] MEDS ORDERED: LEVO250T58 MT (10:20)
[2021-04-25] MEDS ORDERED: METOPROLOL TARTRATE 50MG TABLET PO SCH (11:15)
[2021-04-25] MEDS ORDERED: METO25TA6 MT (11:16)
[2021-04-25] MEDS ORDERED: HYDR-4135 PO (11:16)
[2021-04-25] MEDS ORDERED: HYDR-4001 MT (15:48)
[2021-04-25] MEDS: LORAZEPAM 2MG/ML CPJ IV PRN (20:59)
[2021-04-25] MEDS: FAMOTIDINE 20MG TABLET PO SCH (20:59)
[2021-04-25] MEDS: METOPROLOL TARTRATE 25MG TABLET PO SCH (22:17)
[2021-04-26] VITALS (12 sets, daily range): BP systolic 140–213; BP diastolic 77–98
[2021-04-26] MEDS: MORPHINE SULFATE 2 MG/ML CPJ (NOT FOR IM USE) IV PRN (04:12)
[2021-04-26] MEDS: HYDRALAZINE 20MG/ML VIAL IV PRN (04:12)
[2021-04-26] MEDS: METRONIDAZOLE 500MG TABLET PO SCH ×2 (05:15→13:09)
[2021-04-26] MEDS: HYDRALAZINE HCL 50MG TABLET PO SCH ×2 (05:15→13:10)
[2021-04-26 06:23] LABS: HEMATOCRIT. 31.8 % (36.0-48.0); MEAN CORPUSCULAR HEMOGLOBIN 26.6 pg (28.0-32.0); MEAN CORPUSCULAR VOLUME 84.9 fL (81.0-99.0); MEAN PLATELET VOLUME 9.2 fl (7.4-10.4); PLATELET 369 x1000/uL (130-400); RED BLOOD CELL COUNT 3.75 mill/uL (4.2-5.4)
[2021-04-26] MEDS: LORAZEPAM 2MG/ML CPJ IV PRN (06:29)
[2021-04-26 06:39] LABS: PHOSPHORUS 2.6 mg/dL (2.5-4.9)
[2021-04-26] MEDS: BLOOD SUGAR DIAGNOSTIC STRIP TEST SCH ×3 (07:30→17:27)
[2021-04-26] MEDS: AMLODIPINE 5MG TABLET PO SCH (08:58)
[2021-04-26] MEDS: CEFEPIME 2,000 MG in DEXT 5% WATER 100 ML IV SCH (08:59)
[2021-04-26] MEDS: METOPROLOL TARTRATE 25MG TABLET PO SCH (08:59)
[2021-04-26] MEDS: INSULIN LISPRO 100 UNITS/ML SUBCUT SCH ×3 (09:02→18:28)
[2021-04-26] MEDS: CLONIDINE 0.1MG TABLET PO PRN (13:09)
[2021-04-26] MEDS ORDERED: VANCOMYCIN 1250MG in DEXTROSE 5% WATER 250ML IV NR (14:00)
[2021-04-26 16:13] LABS: PLATELET ESTIMATE NORMAL
[2021-04-26] MEDS ORDERED: METOPROLOL TARTRATE 50MG TABLET PO SCH (21:00)
[2021-04-27] MEDS ORDERED: AMLODIPINE 5MG TABLET PO SCH (09:00)
== END 2021-04-26 23:17 | disposition home health service (06) | DRG 871 ==
LOC: ER 09:17 → 5EST 12:17 → EDBEDREQ 12:23 → ENRESERV 13:42
PROVIDERS: ADMIT Internal Medicine; ATTEND Internal Medicine
PROC: 30233N1 Transfusion of Nonautologous Red Blood Cells into Peripheral Vein, Percutaneous Approach (ICD-10-PCS; principal; 2021-04-22)
PROC: XW03396 Introduction of Ceftolozane/Tazobactam Anti-infective into Peripheral Vein, Percutaneous Approach, New Technology Group 6 (ICD-10-PCS; 2021-04-22)
DX: A41.52 Sepsis due to Pseudomonas (principal); G93.41 Metabolic encephalopathy; N17.9 Acute kidney failure, unspecified; N18.4 Chronic kidney disease, stage 4 (severe); N13.6 Pyonephrosis; L03.116 Cellulitis of left lower limb; D64.9 Anemia, unspecified; E11.22 Type 2 diabetes mellitus with diabetic chronic kidney disease; E87.5 Hyperkalemia; E88.09 Other disorders of plasma-protein metabolism, not elsewhere classified; G89.29 Other chronic pain; I12.9 Hypertensive chronic kidney disease with stage 1 through stage 4 chronic kidney disease, or unspecified chronic kidney disease; M10.9 Gout, unspecified; M17.0 Bilateral primary osteoarthritis of knee; K52.9 Noninfective gastroenteritis and colitis, unspecified; E11.65 Type 2 diabetes mellitus with hyperglycemia; I16.0 Hypertensive urgency; M25.462 Effusion, left knee; N25.89 Other disorders resulting from impaired renal tubular function; Z79.4 Long term (current) use of insulin; Z86.011 Personal history of benign neoplasm of the brain; Z86.718 Personal history of other venous thrombosis and embolism; Z86.73 Personal history of transient ischemic attack (TIA), and cerebral infarction without residual deficits; Z87.442 Personal history of urinary calculi; Z87.891 Personal history of nicotine dependence; Z91.14 Patient's other noncompliance with medication regimen; Z79.899 Other long term (current) drug therapy
CPT/HCPCS: 36415; 36600; 71045; 73560; 73700; 74176; 76770; 80048; 80053; 80061; 80202; 80305; 80320; 81003; 82010; 82270; 82330; 82375; 82550; 82553; 82805; 82962; 83036; 83605; 83735; 83880; 83930; 83935; 84100; 84132; 84145; 84439; 84443; 84484; 84550; 85014; 85018; 85025; 85044; 85049; 85384; 85651; 86141; 86850; 86900; 86920; 87077; 87186; 93005; 93970; 97162; 97530; 99291; J0360; J0692; J0696; J1650; J1815; J1940; J1956; J2060; J2270; J2310; J2405; J2543; J3370; J7030; J7060; P9016; A4315; G0480

== ENCOUNTER 2021-05-13 09:00 | Inpatient (IN) | payer MEDICARE, OTHER ==
[~2021-05-13] VITALS: Ht 167.6 cm; Wt 89.8 kg
[~2021-05-13 09:00] MED LIST: HUMALOG; HYDR-4001 MT; HYDR-4135 PO; LANTUS; LEVO250T58 MT; METO25TA6 MT
[2021-05-13 10:13] LABS: BASOPHILS % 1.1 % (0.0-2.0); EOSINOPHILS % 1.2 % (0.0-5.0); HEMATOCRIT. 34.9 % (36.0-48.0); HEMOGLOBIN. 11.1 g/dL (12.0-16.0); MEAN CORPUSCULAR HEMOGLOBIN 26.3 pg (28.0-32.0); MEAN CORPUSCULAR VOLUME 82.6 fL (81.0-99.0); MEAN PLATELET VOLUME 9.3 fl (7.4-10.4); MONOCYTES % 5.5 % (2.0-8.0); NEUTROPHILS % 82.2 % (40.0-76.0); PLATELET 369 x1000/uL (130-400); RED BLOOD CELL COUNT 4.23 mill/uL (4.2-5.4); RED CELL DISTRIBUTION WIDTH 17.6 % (11.6-14.6)
[2021-05-13] MEDS ORDERED: NITROGLYCERIN 50MG PREMIX 250 ML IV ONE (10:15)
[2021-05-13 10:21] LABS: CHLORIDE 113 mEq/L (98-107)
[2021-05-13 10:34] LABS: T4 FREE 1.17 ng/dL (0.76-1.46)
[2021-05-13] MEDS ORDERED: CEFTRIAXONE 1 G PREMIX 50 ML IV SCH (10:45)
[2021-05-13] MEDS ORDERED: AZITHROMYCIN 500MG/250ML 250 ML IV SCH (11:00)
[2021-05-13] MEDS ORDERED: FUROSEMIDE 40MG/4ML VIAL IVP SCH ×2 (11:45→17:15)
[2021-05-13 13:36] LABS: CLARITY URINE CLOUDY (CLEAR); COLOR URINE YELLOW (YELLOW); KETONES URINE NEGATIVE (NEGATIVE); LEUKOCYTE ESTERASE URINE 2+ (NEGATIVE); NITRITE URINE NEGATIVE (NEGATIVE); OCCULT BLOOD URINE NEGATIVE (NEGATIVE); PROTEIN URINE 3+ (NEGATIVE); SPECIFIC GRAVITY URINE 1.016 (1.005-1.030); UROBILINOGEN URINE 0.2 E.U./dL (0.2-1.0)
[2021-05-13] MEDS ORDERED: NA PHOS,M-B/NA PHOS,DI-BA ENEMA 118ML PR PRN (16:00)
[2021-05-13] MEDS ORDERED: ACETAMINOPHEN 325MG TABLET PO PRN (16:00)
[2021-05-13] MEDS ORDERED: IPRATROPIUM/ALBUTEROL 0.5-3(2.5)MG/3ML NEB NEB PRN (16:00)
[2021-05-13] MEDS ORDERED: ONDANSETRON HCL 4MG/2ML INJ IV PRN (16:00)
[2021-05-13] MEDS ORDERED: GUAIFENESIN 200MG/10ML SUGAR FREE UDC PO PRN (16:00)
[2021-05-13] MEDS ORDERED: ACETAMINOPHEN 650MG SUPP PR PRN (16:00)
[2021-05-13] MEDS ORDERED: DOCUSATE SODIUM 100MG CAPSULE PO PRN (16:00)
[2021-05-13] MEDS ORDERED: METOPROLOL TARTRATE 50MG TABLET PO NR (16:00)
[2021-05-13] MEDS ORDERED: MAGNESIUM/ALUMINUM HYDROXIDE/SIMETHICONE 30ML UDC PO PRN (16:00)
[2021-05-13] MEDS ORDERED: DIPHENHYDRAMINE 50MG/ML VIAL IV PRN (16:00)
[2021-05-13] MEDS ORDERED: MORPHINE SULFATE 2 MG/ML CPJ (NOT FOR IM USE) IV PRN (16:00)
[2021-05-13] MEDS ORDERED: HYDRALAZINE 20MG/ML VIAL IV NR (16:45)
[2021-05-13 16:48] LABS: BG BASE EXCESS 0.4 mmol/L (-2.0-2.0); BG CARBOXYHEMOGLOBIN 0.2 % (0.5-1.5); BG DEOXYHEMOGLOBIN 2.4 % (0.0-5.0); BG FRACTION INSPIRED OXYGEN 30; BG HCO3 ACT 23.3 mmol/L (22.0-26.0); BG METHEMOGLOBIN 0.5 % (0.0-1.5); BG OXYGEN SATURATION 97.6 % (92.0-98.5); BG OXYHEMOGLOBIN 96.9 % (94.0-97.0); BG PCO2 30.3 mmHg (35.0-45.0); BG PH 7.503 (7.350-7.450); BG SAMPLE SITE LEFT RADIAL; BG TOTAL HEMOGLOBIN 8.2 g/dL (12.0-18.0); BG VENT MODE MASK - BIPAP
[2021-05-13] MEDS ORDERED: LEVOFLOXACIN 500MG PREMIX 100 ML IV SCH (17:00)
[2021-05-13 17:08] LABS: INR 1.1; PROTHROMBIN TIME 11.9 sec (9.6-11.0)
[2021-05-13] MEDS: HYDROCODONE/ACETAMINOPHEN 5/325MG TABLET PO PRN (17:19)
[2021-05-13] MEDS: DEXAMETHASONE 10 MG/ML VIAL IV SCH (17:30)
[2021-05-13] MEDS: LORAZEPAM 0.5MG TABLET PO PRN (19:09)
[2021-05-13] MEDS: METOPROLOL TARTRATE 50MG TABLET PO SCH (21:47)
[2021-05-13] MEDS: HEPARIN 5000 UNITS/ML VIAL SUBCUT SCH (21:48)
[2021-05-13 23:34] LABS: CREATINE KINASE 61 IU/L (26-192)
[2021-05-13 23:35] LABS: CREATINE KINASE MB FRACTION < 1.0 ng/mL (0.5-3.6)
[2021-05-14] MEDS: LORAZEPAM 0.5MG TABLET PO PRN (00:15)
[2021-05-14] MEDS: HYDRALAZINE 20MG/ML VIAL IV PRN ×2 (00:16→15:39)
[2021-05-14] MEDS: NITROGLYCERIN OINT 1GM/INCH UDPKT TD SCH ×4 (00:48→21:36)
[2021-05-14] MEDS ORDERED: DEXTROSE 50% WATER 50ML SYRINGE IV PRN (04:30)
[2021-05-14] MEDS ORDERED: NALOXONE HCL 0.4 MG/ML 1ML VIAL IV PRN (04:30)
[2021-05-14] MEDS: BLOOD SUGAR DIAGNOSTIC STRIP TEST SCH ×2 (06:12→12:15)
[2021-05-14] MEDS: INSULIN REGULAR HUMAN (MEDIUM DOSE) 100 UNITS/ML 3ML VIAL SUBCUT SCH (06:18)
[2021-05-14 06:24] LABS: BASOPHILS % 0.7 % (0.0-2.0); EOSINOPHILS % 0.5 % (0.0-5.0); HEMATOCRIT. 25.6 % (36.0-48.0); HEMOGLOBIN. 8.1 g/dL (12.0-16.0); MEAN CORPUSCULAR HEMOGLOBIN 26.3 pg (28.0-32.0); MEAN CORPUSCULAR VOLUME 82.8 fL (81.0-99.0); MEAN PLATELET VOLUME 8.1 fl (7.4-10.4); MONOCYTES % 7.8 % (2.0-8.0); PLATELET 270 x1000/uL (130-400)
[2021-05-14 06:31] LABS: CHLORIDE 113 mEq/L (98-107)
[2021-05-14 06:40] LABS: CREATINE KINASE 30 IU/L (26-192)
[2021-05-14 06:41] LABS: CREATINE KINASE MB FRACTION < 1.0 ng/mL (0.5-3.6)
[2021-05-14] MEDS: PANTOPRAZOLE 40MG DR TABLET PO SCH (06:56)
[2021-05-14] MEDS: CLONIDINE 0.1MG TABLET PO PRN (07:03)
[2021-05-14] MEDS: METOPROLOL TARTRATE 50MG TABLET PO SCH ×2 (11:01→21:35)
[2021-05-14] MEDS: FUROSEMIDE 40MG/4ML VIAL IVP SCH (11:02)
[2021-05-14] MEDS: DEXAMETHASONE 10 MG/ML VIAL IV SCH (11:05)
[2021-05-14] MEDS: HEPARIN 5000 UNITS/ML VIAL SUBCUT SCH ×2 (11:08→21:37)
[2021-05-14 11:24] LABS: BG BASE EXCESS 0.5 mmol/L (-2.0-2.0); BG CARBOXYHEMOGLOBIN 0.2 % (0.5-1.5); BG DEOXYHEMOGLOBIN 2.8 % (0.0-5.0); BG FRACTION INSPIRED OXYGEN 28; BG HCO3 ACT 24.2 mmol/L (22.0-26.0); BG METHEMOGLOBIN 0.4 % (0.0-1.5); BG OXYGEN SATURATION 97.2 % (92.0-98.5); BG OXYHEMOGLOBIN 96.6 % (94.0-97.0); BG PCO2 35.1 mmHg (35.0-45.0); BG PH 7.456 (7.350-7.450); BG PO2 95.5 mmHg (75.0-100.0); BG SAMPLE SITE UAL; BG TOTAL HEMOGLOBIN 8.9 g/dL (12.0-18.0); BG VENT MODE NASAL CANNULA
[2021-05-14 14:31] LABS: BG BASE EXCESS 1.3 mmol/L (-2.0-2.0); BG CARBOXYHEMOGLOBIN 0.4 % (0.5-1.5); BG DEOXYHEMOGLOBIN 7.8 % (0.0-5.0); BG FRACTION INSPIRED OXYGEN 21; BG HCO3 ACT 24.9 mmol/L (22.0-26.0); BG METHEMOGLOBIN 0.3 % (0.0-1.5); BG OXYGEN SATURATION 92.1 % (92.0-98.5); BG OXYHEMOGLOBIN 91.5 % (94.0-97.0); BG PCO2 35.1 mmHg (35.0-45.0); BG PH 7.468 (7.350-7.450); BG SAMPLE SITE RIGHT RADIAL; BG TOTAL HEMOGLOBIN 9.1 g/dL (12.0-18.0); BG VENT MODE ROOM AIR
[2021-05-14 15:08] LABS: HEMATOCRIT 26.8 % (36.0-48.0); HEMOGLOBIN 8.6 g/dL (12.0-16.0)
[2021-05-14 19:10] VITALS: BP 166/79
[2021-05-14 20:00] VITALS: BP 166/79
[2021-05-14] MEDS: HYDRALAZINE HCL 50MG TABLET PO SCH (21:35)
[2021-05-14] MEDS: HYDROCODONE/ACETAMINOPHEN 5/325MG TABLET PO PRN (21:35)
[2021-05-14] MEDS: METHYLPREDNISOLONE SOD SUCC 40 MG/ML VIAL IV SCH (21:36)
[2021-05-15] VITALS (7 sets, daily range): BP systolic 156–181; BP diastolic 69–88
[2021-05-15 05:52] LABS: BASOPHILS % 0.6 % (0.0-2.0); EOSINOPHILS % 0.1 % (0.0-5.0); HEMATOCRIT. 26.5 % (36.0-48.0); HEMOGLOBIN. 8.5 g/dL (12.0-16.0); LYMPHOCYTES % 16.1 % (20.0-50.0); MEAN CORPUSCULAR HEMOGLOBIN 26.9 pg (28.0-32.0); MEAN CORPUSCULAR VOLUME 83.5 fL (81.0-99.0); MEAN PLATELET VOLUME 9.6 fl (7.4-10.4); MONOCYTES % 3.1 % (2.0-8.0); NEUTROPHILS % 80.1 % (40.0-76.0); PLATELET 273 x1000/uL (130-400); RED BLOOD CELL COUNT 3.18 mill/uL (4.2-5.4); RED CELL DISTRIBUTION WIDTH 17.2 % (11.6-14.6)
[2021-05-15] MEDS: INSULIN REGULAR HUMAN (MEDIUM DOSE) 100 UNITS/ML 3ML VIAL SUBCUT SCH ×2 (06:00)
[2021-05-15] MEDS: BLOOD SUGAR DIAGNOSTIC STRIP TEST SCH ×5 (06:36→23:31)
[2021-05-15] MEDS: HYDRALAZINE HCL 50MG TABLET PO SCH ×3 (06:37→21:06)
[2021-05-15] MEDS: PANTOPRAZOLE 40MG DR TABLET PO SCH (06:37)
[2021-05-15] MEDS: NITROGLYCERIN OINT 1GM/INCH UDPKT TD SCH ×3 (06:37→21:06)
[2021-05-15] MEDS: FUROSEMIDE 40MG/4ML VIAL IVP SCH (08:01)
[2021-05-15] MEDS: METOPROLOL TARTRATE 50MG TABLET PO SCH (08:01)
[2021-05-15] MEDS: METHYLPREDNISOLONE SOD SUCC 40 MG/ML VIAL IV SCH ×2 (08:01→21:04)
[2021-05-15] MEDS: HEPARIN 5000 UNITS/ML VIAL SUBCUT SCH ×2 (08:01→21:06)
[2021-05-15] MEDS ORDERED: LEVOFLOXACIN 750MG PREMIX 150 ML IV SCH (11:00)
[2021-05-15] MEDS: CLONIDINE 0.1MG TABLET PO PRN ×2 (11:55)
[2021-05-15] MEDS: INSULIN LISPRO (MEDIUM DOSE) 100 UNITS/ML SUBCUT SCH ×3 (12:22→23:30)
[2021-05-15] MEDS: AMLODIPINE 10MG TABLET PO SCH (15:35)
[2021-05-15] MEDS: HYDROCODONE/ACETAMINOPHEN 5/325MG TABLET PO PRN (21:05)
[2021-05-15] MEDS: METOPROLOL TARTRATE 100MG TABLET PO SCH (21:06)
[2021-05-16] VITALS (7 sets, daily range): BP systolic 134–166; BP diastolic 68–83
[2021-05-16 06:08] LABS: BASOPHILS % 0.4 % (0.0-2.0); HEMOGLOBIN. 8.9 g/dL (12.0-16.0); LYMPHOCYTES % 8.3 % (20.0-50.0); MEAN CORPUSCULAR HEMOGLOBIN 26.5 pg (28.0-32.0); MEAN CORPUSCULAR VOLUME 83.5 fL (81.0-99.0); MEAN PLATELET VOLUME 10.3 fl (7.4-10.4); MONOCYTES % 3.2 % (2.0-8.0); NEUTROPHILS % 88.1 % (40.0-76.0); PLATELET 304 x1000/uL (130-400); RED BLOOD CELL COUNT 3.35 mill/uL (4.2-5.4); RED CELL DISTRIBUTION WIDTH 16.7 % (11.6-14.6)
[2021-05-16] MEDS: HYDRALAZINE HCL 50MG TABLET PO SCH ×2 (06:36→13:43)
[2021-05-16] MEDS: NITROGLYCERIN OINT 1GM/INCH UDPKT TD SCH ×2 (06:36→13:43)
[2021-05-16] MEDS: BLOOD SUGAR DIAGNOSTIC STRIP TEST SCH ×2 (06:36→12:00)
[2021-05-16] MEDS: PANTOPRAZOLE 40MG DR TABLET PO SCH (06:36)
[2021-05-16] MEDS: CLONIDINE 0.1MG TABLET PO PRN (06:36)
[2021-05-16] MEDS: INSULIN LISPRO (MEDIUM DOSE) 100 UNITS/ML SUBCUT SCH (06:37)
[2021-05-16] MEDS: AMLODIPINE 10MG TABLET PO SCH (08:22)
[2021-05-16] MEDS: HEPARIN 5000 UNITS/ML VIAL SUBCUT SCH (08:23)
[2021-05-16] MEDS: METHYLPREDNISOLONE SOD SUCC 40 MG/ML VIAL IV SCH (08:23)
[2021-05-16] MEDS: METOPROLOL TARTRATE 100MG TABLET PO SCH ×2 (08:23→20:42)
[2021-05-16] MEDS: FUROSEMIDE 40MG/4ML VIAL IVP SCH (08:23)
[2021-05-16] MEDS ORDERED: SODIUM POLYSTYRENE SULFONATE 15 G/60 ML BOT PO NR (11:00)
[2021-05-16] MEDS ORDERED: INSULIN LISPRO 100 UNITS/ML SUBCUT NR (13:30)
[2021-05-16] MEDS ORDERED: DEXTROSE 50% WATER 50ML SYRINGE IV PRN (13:45)
[2021-05-16] MEDS ORDERED: INSULIN GLARGINE UD 100 UNITS/ML SYR SUBCUT SCH ×2 (15:00→23:00)
[2021-05-16 15:12] LABS: *AMPHETAMINES SCREEN URINE NEGATIVE (NEGATIVE); *BARBITURATES SCREEN URINE NEGATIVE (NEGATIVE); *BENZODIAZEPINES SCREEN URINE NEGATIVE (NEGATIVE); *COCAINE SCREEN URINE NEGATIVE (NEGATIVE); CANNABINOID URINE SCREEN NEGATIVE (NEGATIVE); METHADONE URINE SCREEN NEGATIVE (NEGATIVE)
[2021-05-16 15:13] LABS: OPIATES URINE SCREEN PRESUMTIVE POSITIVE (NEGATIVE); PHENCYCLIDINE URINE SCREEN NEGATIVE (NEGATIVE)
[2021-05-16] MEDS ORDERED: FURO-151 MT (16:46)
[2021-05-16] MEDS ORDERED: ALBU90AE INH (16:46)
[2021-05-16] MEDS ORDERED: LEVO250T58 MT (16:46)
[2021-05-16] MEDS ORDERED: BLOOD SUGAR DIAGNOSTIC STRIP TEST SCH (17:20)
[2021-05-16] MEDS ORDERED: INSULIN LISPRO 100 UNITS/ML SUBCUT SCH (17:50)
[2021-05-16] MEDS: HYDROCODONE/ACETAMINOPHEN 5/325MG TABLET PO PRN (20:42)
[2021-05-17] MEDS ORDERED: FUROSEMIDE 40MG TABLET PO SCH (09:00)
== END 2021-05-16 20:45 | disposition home or self-care (01) | DRG 193 ==
LOC: ER 09:22 → MICUSO 11:40 → CANBEDREQ 05-14 19:19 → 6WST 05-14 21:17
PROVIDERS: ADMIT Internal Medicine; ATTEND Internal Medicine
PROC: 5A09357 Assistance with Respiratory Ventilation, Less than 24 Consecutive Hours, Continuous Positive Airway Pressure (ICD-10-PCS; principal; 2021-05-13)
DX: J18.9 Pneumonia, unspecified organism (principal); I50.33 Acute on chronic diastolic (congestive) heart failure; J96.00 Acute respiratory failure, unspecified whether with hypoxia or hypercapnia; I21.4 Non-ST elevation (NSTEMI) myocardial infarction; I13.0 Hypertensive heart and chronic kidney disease with heart failure and stage 1 through stage 4 chronic kidney disease, or unspecified chronic kidney disease; N39.0 Urinary tract infection, site not specified; N17.9 Acute kidney failure, unspecified; I31.3 Pericardial effusion (noninflammatory); D64.9 Anemia, unspecified; E11.65 Type 2 diabetes mellitus with hyperglycemia; J45.909 Unspecified asthma, uncomplicated; M17.12 Unilateral primary osteoarthritis, left knee; N18.9 Chronic kidney disease, unspecified; Z20.822 Contact with and (suspected) exposure to COVID-19; M10.9 Gout, unspecified; E87.5 Hyperkalemia; I27.20 Pulmonary hypertension, unspecified; E66.9 Obesity, unspecified; E11.22 Type 2 diabetes mellitus with diabetic chronic kidney disease; Z86.718 Personal history of other venous thrombosis and embolism; Z86.73 Personal history of transient ischemic attack (TIA), and cerebral infarction without residual deficits; Z87.440 Personal history of urinary (tract) infections; Z79.891 Long term (current) use of opiate analgesic; Z79.899 Other long term (current) drug therapy; Z79.2 Long term (current) use of antibiotics; Z68.32 Body mass index [BMI] 32.0-32.9, adult
CPT/HCPCS: 36415; 36600; 71045; 78580; 80048; 80053; 80305; 81003; 82375; 82550; 82553; 82805; 82962; 83036; 83605; 83735; 83880; 84145; 84439; 84443; 84484; 85014; 85018; 85025; 87426; 87804; 93005; 93306; 93970; 94660; 99291; J0360; J0456; J0696; J1100; J1644; J1815; J1940; J1956; J2270; J2920; J3490; U0003; U0005

== ENCOUNTER 2022-11-11 06:21 | Emergency (ER) | payer MEDICARE, OTHER ==
[~2022-11-11] VITALS: Ht 167.6 cm; Wt 80.0 kg
[~2022-11-11 06:21] MED LIST changes: +ALBU90AE INH; +FURO-151 MT; -LEVO250T58 MT; +LEVO250T74 MT
[2022-11-11 06:34] VITALS: BP 162/65
[2022-11-11] MEDS ORDERED: HYDROCODONE/ACETAMINOPHEN 5/325MG TABLET PO ONE (06:45)
[2022-11-11] MEDS ORDERED: ONDANSETRON 4MG ODT PO ONE (06:45)
[2022-11-11] MEDS ORDERED: ACET-2708 MT (09:20)
== END 2022-11-11 12:01 | disposition home or self-care (01) ==
LOC: ER 06:21
DX: S89.91XA Unspecified injury of right lower leg, initial encounter (principal); W18.39XA Other fall on same level, initial encounter; Y93.89 Activity, other specified; Y92.89 Other specified places as the place of occurrence of the external cause; Y99.8 Other external cause status; J45.909 Unspecified asthma, uncomplicated; E11.9 Type 2 diabetes mellitus without complications; I10 Essential (primary) hypertension
CPT/HCPCS: 73562; 73590; 73630; 99284; Q0162

== ENCOUNTER 2023-03-28 14:50 | Emergency (ER) | payer MEDICARE, MEDICAID ==
[~2023-03-28] VITALS: Ht 167.6 cm; Wt 68.0 kg
[~2023-03-28 14:50] MED LIST changes: -ALBU90AE INH; +ASPI-1406 PO; +ATOR-2 PO; -FURO-151 MT; +FURO40TA5 PO; -HUMALOG; -HYDR-4001 MT; +HYDR-4009 PO; -HYDR-4135 PO; +HYDR100T26 MT; +HYDR100T31 PO; +INSLIS SUBCUT; -LANTUS; +LEVE500T19 PO; -LEVO250T74 MT; +METO100T16 MT; -METO25TA6 MT; +SEVE0.8P3 PO; +VALS320T16 PO
[2023-03-28 14:59] VITALS: O2SAT 95
[2023-03-28] MEDS ORDERED: NITROGLYCERIN OINT 1GM/INCH UDPKT TD ONE (22:30)
[2023-03-28] MEDS ORDERED: HYDRALAZINE HCL 25MG TABLET PO ONE (23:15)
[2023-03-28] MEDS ORDERED: ACETAMINOPHEN 325MG TABLET PO ONE (23:15)
[2023-03-28] MEDS ORDERED: CLONIDINE 0.1MG TABLET PO ONE (23:30)
[2023-03-28] MEDS ORDERED: HYDROCODONE/ACETAMINOPHEN 5/325MG TABLET PO ONE (23:30)
[2023-03-29] MEDS ORDERED: HYDROCODONE/ACETAMINOPHEN 5/325MG TABLET PO ONE (05:15)
[2023-03-29] MEDS: HYDRALAZINE HCL 100MG TABLET PO SCH ×2 (05:45→08:05)
[2023-03-29] MEDS: CLONIDINE 0.1MG TABLET PO PRN ×2 (08:06→10:54)
[2023-03-29] MEDS ORDERED: METOPROLOL TARTRATE 100MG TABLET PO ONE (09:00)
[2023-03-29 10:50] VITALS: BP 153/83; PULSE 75; RESP 18; TEMP 98.4
== END 2023-03-29 11:04 | disposition home or self-care (01) ==
LOC: ER 14:50
DX: I11.0 Hypertensive heart disease with heart failure (principal); I50.9 Heart failure, unspecified; J44.9 Chronic obstructive pulmonary disease, unspecified; I12.0 Hypertensive chronic kidney disease with stage 5 chronic kidney disease or end stage renal disease; E11.22 Type 2 diabetes mellitus with diabetic chronic kidney disease; N18.6 End stage renal disease; Z99.2 Dependence on renal dialysis; Z86.73 Personal history of transient ischemic attack (TIA), and cerebral infarction without residual deficits
CPT/HCPCS: 99285